=== PATIENT | female | born 1975 | race Caucasian/White ===

== ENCOUNTER 2017-11-08 19:22 | Emergency (ER) | payer OTHER ==
[2017-11-08 19:46] VITALS: BP 151/90
[2017-11-08] MEDS ORDERED: Amoxicillin PO (*) 500 MG CAP PO ONE (20:29)
[2017-11-08] MEDS ORDERED: Amoxicillin PO (*) 250 MG CAP PO ONE (20:29)
[2017-11-08] MEDS ORDERED: HYDROcodone/ACETAMIN 5-325 MG* 1 TAB PO ONE (20:30)
--- NOTE | 2017-11-08 20:31 | UC ---
Throat Pain/Nasal Reece HPI - HPI Summary HPI Summary: 42 yo female presents with severe left facial pain x 1 day she has chronic sinus issues she has had sinus surgery and repair of deviated septum she can not breath through her left nostril no f/c - History of Current Complaint Chief Complaint: UCRespiratory Stated Complaint: L SIDE FACIAL PAIN Time Seen by Provider: 11/08/17 20:18 Hx Obtained From: Patient Onset/Duration: Gradual Onset, Lasting Days Severity: Severe Pain Intensity: 7 Pain Scale Used: 0-10 Numeric Associated Signs & Symptoms: Positive: Sinus Discomfort, Nasal Discharge Related History: Prior ENT Surgery - Epiglottits Risk Factors Epiglottis Risk Factors: Negative - Allergies/Home Medications Allergies/Adverse Reactions: Allergies Allergy/AdvReac Type Severity Reaction Status Date / Time NSAIDS (Non-Steroidal Allergy See Comment Verified 11/08/17 19:37 Anti-Inflamma Home Medications: Home Medications Acetaminophen [Tylenol Extra Strength] 1,000 mg PO Q8HR PRN 11/08/17 [History Confirmed 11/08/17] Bcp 1 tab PO DAILY 11/08/17 [History] Lisinopril 10 mg PO DAILY 11/08/17 [History Confirmed 11/08/17] Venlafaxine CAP (NF) [Effexor CAP (NF)] 150 mg PO DAILY 11/08/17 [History Confirmed 11/08/17] PMH/Surg Hx/FS Hx/Imm Hx Previously Healthy: Yes Cardiovascular History: Hypertension - Surgical History Surgical History: Yes Surgery Procedure, Year, and Place: Gastric bypass 2010. cholecystectomy 2011. sinus surgery 2005 - Family History Known Family History: Positive: Hypertension - Social History Alcohol Use: Weekly Substance Use Type: None Smoking Status (MU): Never Smoked Tobacco Review of Systems Constitutional: Negative Skin: Negative Eyes: Negative ENT: Nasal Discharge, Sinus Congestion, Sinus Pain/Tenderness Respiratory: Negative Cardiovascular: Negative Gastrointestinal: Negative Genitourinary: Negative Motor: Negative Neurovascular: Negative Musculoskeletal: Negative Neurological: Negative Psychological: Negative Is Patient Immunocompromised?: No All Other Systems Reviewed And Are Negative: Yes Physical Exam Triage Information Reviewed: Yes Appearance: Well-Appearing, No Pain Distress, Well-Nourished Vital Signs: Initial Vital Signs Temp 98.6 F 11/08/17 19:39 Pulse 83 11/08/17 19:39 Resp 18 11/08/17 19:39 BP 151/90 09/02/18 19:39 Pulse Ox 100 11/08/17 19:39 Eyes: Positive: Conjunctiva Clear ENT: Positive: Hearing grossly normal, Nasal congestion, TMs normal, Sinus tenderness, Uvula midline. Negative: Nasal drainage Dental Exam: Normal Neck: Positive: Supple, Nontender, No Lymphadenopathy Respiratory: Positive: Lungs clear, Normal breath sounds, No respiratory distress, No accessory muscle use Cardiovascular: Positive: RRR, No Murmur Musculoskeletal: Positive: ROM Intact, No Edema Neurological: Positive: Alert Psychological Exam: Normal Skin Exam: Normal Throat Pain/Nasal Course/Dx - Differential Dx/Diagnosis Provider Diagnoses: acute sinusitis Discharge - Sign-Out/Discharge Documenting (check all that apply): Patient Departure All imaging exams completed and their final reports reviewed: No Studies - Discharge Plan Condition: Stable Disposition: HOME Prescriptions: Amoxicillin PO (*) [Amoxicillin 875 MG (*)] 875 mg PO BID #20 tab Patient Education Materials: Sinusitis (ED) Forms: *Work Release Referrals: [facility] [Outside] - As Soon As Possible (your BP is high and should be followed try to find a primary ) Additional Instructions: use your fluticasone nasal spray : 2 sprays each nostril 2x day for the next 2- 3 weeks saline nasal spray twice daily warm facial compresses recheck mid week if not improved - Billing Disposition and Condition Condition: STABLE Disposition: Home
== END 2017-11-08 20:45 | disposition home or self-care (01) ==
LOC: EDSEX → UCEAST 19:22
DX: J01.90 Acute sinusitis, unspecified (principal); Z88.6 Allergy status to analgesic agent; I10 Essential (primary) hypertension
CPT/HCPCS: 99203; A9270-GY; G0463

== ENCOUNTER 2017-12-18 19:22 | Emergency (ER) | payer OTHER ==
--- OUTSIDE RECORDS SUMMARY | 2017-12-18 20:10 | XMS REPORT | Continuity of Care Document ---
:1975 External Reference #:[id number] Author Name Keny Kennedy M.D. Address [address] [place] [address] Care Team Providers Name Role Phone Cr Prater M.D. Primary Care Physician Unavailable Payers Type Date Identification Numbers Payment Provider Subscriber Policy Number: [id number] [facility] Tiffany Bob PayID: [id number] [address] [address] [place] [address] Advance Directives Description No Information Available Problems Description No Information Family History Date Family Member(s) Problem(s) Comments General Thyroid Disease Mother Thyroid Disease First Sister Thyroid Disease Social History Type Date Description Comments Sex Unknown Occupation Nurses [employer] Tobacco Use Start: Unknown Never Smoked Cigarettes Tobacco Use Start: Unknown Never Smoked Cigars Tobacco Use Start: Unknown Never Smoked A Pipe Smokeless Tobacco Never Used Smokeless Tobacco ETOH Use Currently occasionally consumes alcohol Tobacco Use Start: Unknown Patient has never smoked Smoking Status Reviewed: 12/08/17 Patient has never smoked Allergies, Adverse Reactions, Alerts Date Description Reaction Status Severity Comments 12/08/2017 NSAIDS Active due to gastric bypass Medications Medication Date Status Form Strength Qnty SIG Indications Ordering Provider Lisinopril Active Tablets 10mg SehyiovanCr giang M.D. Sprintec 28 Active Tablets 0.25-35mg-m Digiovanna 000 cg Cr M.D. Venlafaxine Active Caps ER 150mg daily Digiovanna HCL ER 000 24HR Cr M.D. Ropinirole HCL Active Tablets 0.25mg Digiovanna 000 , Jana N.P. Flintstones Active Chewtabs bid Unknown Complete 000 Calcium Active Tablets 1 by Unknown 000 mouth twice a day Immunizations Description No Information Available Vital Signs Date Vital Result Comment 12/08/2017 10:55am Weight 174.00 lb Weight 78.926 kg Height 61 inches 5'1" Height in cm's 154.9 cm BMI (Body Mass Index) 32.9 kg/m2 Results Description No Information Available Procedures Date Code Description Status 12/08/2017 54487 Nasal Endoscopy, Diagnostic Completed Encounters Type Date Location Provider Dx Diagnosis Office Visit 12/08/2017 11:00a [place] 03/09/07 Keny Kennedy R51 Headache Nancy Plan of Treatment 12/08/2017 - Keny Kennedy M.D.R51 HeadacheComments:The patient has been having headaches for over a year now and has bene treated with multiple coursesof ABX. And over the past month she has felt worse. She had endoscopic sinus surgery by Dr. Kulkarni for these same symptoms in 2015. She started Sprintec about 2 or 3 years and she started with the headaches around that time. This led to the surgery. She has bene to see Dr. Kulkarni multiple times recently and treated with repeat courses of ABX.Her ENT examination is normal. Her nasal endoscopy shows postsurgical changes without any evidence of sinusitis.I do not think her current symptoms are sinusitis. I think she is having neurologic headaches. Given the association of then starting when she started the Sprintec, I think these are hormone mediated headaches. I want her to talk to her PCP about this. I also asked her to bring me to CD of her preoperative CT scan.If I am correct the question then is why does she feel better with the antibiotics. They also immune modulation effect and work as antiinflammatories. So, I think it is this effect that makes her feel better.
--- NOTE | 2017-12-18 20:12 | UC ---
Headache HPI - HPI Summary HPI Summary: 42 yo female presents with headache. She tells me that her headache began 4 days ago. Yesterday her headache became worse so she went to [facility] where she had a head CT done which showed possible sinus infection - per pt. She followed up with ENT earlier today and they told her that she did not have a sinus infection and prescribed her maxalt for her headache which she took x2 with no relief. She presents here this evening for a continued headache. She has been taking tylenol with no relief. She cannot take NSAIDs due to hx of gastric bypass. Denies dizziness, fever, chills, vision changes, sinus symptoms, cough, SOB, chest pain, abdominal pain, n/v. In further questioning pt says that she was dx'd with HTN 1 month and placed on lisinopril. Initially her BP was "too low" per pt. - History Of Current Complaint Chief Complaint: UCHeadache Stated Complaint: HEADACHE Time Seen by Provider: 12/18/17 20:12 Hx Obtained From: Patient Initially Headache Was: Severe Currently Pain Is: Severe Pain Intensity: 8 Pain Scale Used: 0-10 Numeric - Allergies/Home Medications Allergies/Adverse Reactions: Allergies Allergy/AdvReac Type Severity Reaction Status Date / Time NSAIDS (Non-Steroidal Allergy See Comment Verified 12/18/17 20:11 Anti-Inflamma Home Medications: Home Medications Rizatriptan ODT (NF) [Maxalt-[employer] (NF)] 10 mg PO 12/18/17 [History] PMH/Surg Hx/FS Hx/Imm Hx Cardiovascular History: Hypertension - Surgical History Surgical History: Yes Surgery Procedure, Year, and Place: Gastric bypass 2010. cholecystectomy 2011. sinus surgery 2005 - Family History Known Family History: Positive: Hypertension - Social History Occupation: Employed Full-time Lives: With Family Alcohol Use: Occasionally Substance Use Type: None Smoking Status (MU): Never Smoked Tobacco Review of Systems Constitutional: Negative Skin: Negative Eyes: Negative ENT: Negative Respiratory: Negative Cardiovascular: Negative Gastrointestinal: Negative Neurovascular: Negative Musculoskeletal: Negative Neurological: Headache Psychological: Negative All Other Systems Reviewed And Are Negative: Yes Physical Exam - Summary Physical Exam Summary: GENERAL: NAD. WDWN. No pain distress. SKIN: No rashes, sores, ulcers, masses, lesions. HEENT: Head: AT/NC Eyes: PERRLA. EOM intact. Conjunctiva clear without inflammation or discharge. Ears: Hearing grossly normal. TMs intact, no bulging, erythema, or edema. Nose: Nasal mucosa pink and moist. NTTP maxillary and frontal sinus. Throat: Posterior oropharynx without exudates, erythema, or tonsillar enlargement. Uvula midline. NECK: Supple. Nontender. No lymphadenopathy. CHEST: CTAB. No r/r/w. No accessory muscle use. Breathing comfortably and in no distress. CV: RRR. Early diastolic murmur. Pulses intact. Brisk cap refill. ABDOMEN: Soft. NTTP. No distention or guarding. No CVA tenderness. Bowel sounds present MSK: FROM in B/L UEs and LEs with symmetric strength. NEURO: A&Ox3. 3 word recall, remote, recent memory, ability to follow 2-step directions, and attention intact. CN: II: Peripheral weston intact. Vision normal. III, IV, : EOMI. No nystagmus. PERRLA. V: Sensations intact and symmetric. Opens mouth and clenches teeth. VII: No facial asymmetry. Forehead wrinkles. Grins, shuts eyes, frowns, puffs cheeks. VIII: Hearing intact to finger rub. IX, X: Swallows and coughs. Uvula midline. XI: Shrugs shoulders. Turns head against resistance. XII: No tongue deviation [id number] are intact. Gait with normal base. Normal speech. No facial drooping. PSYCH: Age appropriate behavior. Triage Information Reviewed: Yes Vital Signs: Initial Vital Signs Temp 98.4 F 12/18/17 20:08 Pulse 91 12/18/17 20:08 Resp 18 12/18/17 20:08 BP 187/112 12/18/17 20:08 Pulse Ox 99 12/18/17 20:08 Vital Signs: Temp Pulse Resp BP Pulse Ox 98.4 F 91 18 202/120 99 12/18/17 20:08 12/18/17 20:08 12/18/17 20:08 12/18/17 20:44 12/18/17 20:08 Vital Signs Reviewed: Yes Headache Course/Dx - Course Course Of Treatment: Her intialy BP was quite high and her BP recheck was significantly higher. I believe her high BP is the reason for her headache. Given this and her new heart murmur - I have advised pt to be further evaluated in the ED. She was agreeable to this and declined ambulance - her daughter will drive her. - Differential Dx/Diagnosis Provider Diagnoses: Headache. HTN Discharge - Sign-Out/Discharge Documenting (check all that apply): Patient Departure All imaging exams completed and their final reports reviewed: No Studies - Discharge Plan Condition: Stable Disposition: HOME-RECOMMEND TO ED Referrals: No Primary Care Phys,NOPCP [Primary Care Provider] - Additional Instructions: Please go to the ER for further evaluation of your high blood pressure and headache - Billing Disposition and Condition Condition: STABLE Disposition: Home-Recommend to ED
[2017-12-18 20:44] VITALS: BP 202/120
== END 2017-12-18 20:55 | disposition home health service (06) ==
LOC: UCEAST 19:22
DX: R51 Headache (principal); I10 Essential (primary) hypertension; Z88.6 Allergy status to analgesic agent
CPT/HCPCS: 99212; G0463